=== PATIENT | female | born 1965 | race Caucasian/White ===

== ENCOUNTER 2018-05-29 12:51 | Emergency (ER) | payer OTHER ==
[~2018-05-29] VITALS: Ht 157.5 cm; Wt 65.4 kg
[2018-05-29] MEDS ORDERED: ARICEPT 5 MG TAB5 MG PO (13:03)
[2018-05-29] MEDS ORDERED: ARICEPT10 MG PO (13:04)
[2018-05-29 14:24] LABS: ABSOLUTE BASOPHILS 0.1 thou/uL (0.0-0.2); ABSOLUTE EOSINOPHILS 0.1 thou/uL (0.0-0.7); ABSOLUTE LYMPHOCYTES 1.4 thou/uL (0.8-5.3); ABSOLUTE MONOCYTES 0.6 thou/uL (0.0-1.2); ABSOLUTE NEUTROPHILS 4.9 thou/uL (1.6-8.1); BASOPHILS 1.1 %; EOSINOPHILS 1.2 %; HEMATOCRIT 41.4 % (37.0-47.0); HEMOGLOBIN 13.9 gm/dL (12.0-15.0); LYMPHOCYTES 20.4 %; MCH 30.4 pg (26.0-34.0); MCHC 33.7 g/dL (28.0-37.0); MCV 90.2 fL (80.0-100.0); MONOCYTES 8.1 %; MPV 9.2 fl. (7.2-11.1); NUCLEATED RBCS 0 /100WBC; PLATELET COUNT* 198 thou/uL (150-400); POLYS 69.2 %; RBC 4.59 mil/uL (4.20-5.00); RDW-CV 13.9 % (10.5-14.5)
[2018-05-29 14:36] LABS: CALCIUM 8.7 mg/dL (8.5-10.1); CREATININE 0.8 mg/dL (0.6-1.3); POTASSIUM 3.6 mmol/L (3.5-5.1)
[2018-05-29 14:44] LABS: INFLUENZA A ANTIGEN None Detected (None Detect); INFLUENZA B ANTIGEN None Detected (None Detect)
[2018-05-29 14:47] LABS: TOTAL BILIRUBIN 0.4 mg/dL (<0.1-1.0); TOTAL PROTEIN 7.7 g/dL (6.4-8.2)
[2018-05-29] MEDS ORDERED: VALIUM5 MG PO (15:06)
[2018-05-29 15:18] VITALS: BP 154/96
--- NOTE | 2018-05-29 17:50 | EKG ---
[place] [address] ELECTROCARDIOGRAM REPORT Name: KYMBERLY ABDUL [id number] Admission: 05/29/18 Attend Phys: Discharge: 05/29/18 Date of : 65 Report #: [id number] THIS REPORT FOR: //name// [facility] ED Test Date: 2018-05-29 Test Time: 13:01:36 Pat Name: KYMBERLY ABDUL Department: Room: Gender: F [employer]: MENG MACIAS : 1965 Requested By: Lizeth Gardner Order Number: [id number] Liudmila MD: Andrew Marcum Measurements Intervals [place] Rate: 91 P: 63 CO: 157 QRS: 20 QRSD: 84 T: -5 QT: 361 QTc: 445 Interpretive Statements Sinus rhythm No previous ECG available for comparison Electronically Signed On 05-29-2018 17:50:37 [employer] by Andrew Marcum [email or web address] <ELECTRONICALLY SIGNED> By: Andrew Marcum MD, [facility] 05/29/18 1750 1301 1301 Andrew Marcum MD, FACC /EPI
== END 2018-05-29 15:19 | disposition home or self-care (01) ==
LOC: M.ERS 12:51
PROVIDERS: Personal Emergency Response Attendant
DX: R42 Dizziness and giddiness (principal); R19.7 Diarrhea, unspecified; F41.9 Anxiety disorder, unspecified; F32.9 Major depressive disorder, single episode, unspecified